=== PATIENT | male | born 1950 ===

== ENCOUNTER 2021-01-17 13:54 | Emergency (ER) | payer MEDICARE ==
[2021-01-17 15:51] VITALS: BP 157/94
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
== END 2021-01-17 17:10 | disposition home or self-care (01) ==
LOC: ED 13:54
DX: I10 Essential (primary) hypertension (principal)
CPT/HCPCS: 99282